=== PATIENT | female | born 1985 | race Caucasian/White ===

== ENCOUNTER 2020-12-30 04:58 | Inpatient (IN) | payer BC, SELFPAY ==
[2020-12-30] VITALS (98 sets, daily range): BP systolic 75–158; BP diastolic 35–141; PULSE 68–236; RESP 16–20; TEMP 36.2–36.8; O2SAT 97–100; BMI 43.1
--- NOTE | 2020-12-30 05:18 | LDADM ---
This patient, Renny Sanford, was admitted to Labor/Delivery/Recovery 105 on 12/30/20 at 04:58. Plans for labor, pain management and were discussed with patient. Patient/family oriented to hospital policies and general routines including ID bracelet, bed and alarms, visiting hours, pain management, procedures, bathroom and other care routines, personal items, smoking policy, room service/diet and guest tray routines, infant security routines, and visiting hours. Patient/Family are encouraged to report perceived risks to care and to ask questions if they do not understand what they are told or what they should do. See OBIX for further documentation.
[2020-12-30 05:41] LABS: Basophils Percent Auto 0.2 % (0.2-1.2); Eosinophils Percent Auto 0.3 % (0-4.4); Hematocrit 38.9 % (37.0-47.0); Hemoglobin 12.5 g/dL (12.0-15.0); Immature Granulocyte Absolute 0.11 K/mm3 (0.00-0.031); Immature Granulocyte Percent A 1.1 % (0-0.5); Lymphocytes Absolute Auto 1.44 K/mm3 (0.9-3.2); Lymphocytes Percent Auto 14.2 % (18.3-44.2); Mean Corpuscular HGB Conc 32.1 g/dl (32-36); Mean Corpuscular Hemoglobin 28.7 pg (26-34); Mean Corpuscular Volume 89.2 fl (80-100); Mean Platelet Volume 11.5 fl (7.4-10.4); Monocytes Absolute Auto 0.5 K/mm3 (0.1-0.6); Neutrophils Absolute Auto 8.1 K/mm3 (1.3-6.7); Neutrophils Percent Auto 79.2 % (45.5-73.1); Platelet Count Result 178 k/mm3 (150-375); Red Blood Count 4.36 M/mm3 (4.2-5.4); Red Cell Distribution Width 14.8 % (11.5-14.5); White Blood Count 10.2 K/mm3 (4.5-10.0)
--- NOTE | 2020-12-30 07:19 | PM.IMHP ---
H&P: HPI History of Present Illness Date/Time: 12/30/20 07:19 35-year-old 3 para 2 whose last menstrual period unknown but EDC is 12/29/2020 confirmed by 12 week ultrasound presents at 40 weeks for induction of labor. Her has been uncomplicated Chief Complaint: medical induction of labor at term Review of Systems Review of Systems: All systems reviewed & are unremarkable except as noted in HPI and below PMFSH Family History Family History Mother Diabetes mellitus Father Heart disease Social History Social History Substance use: never Gender identity (if verbalized by the patient): Female Spiritual care concerns: No Meds Home Medications and Allergies Home Medications Medication Instructions Recorded Confirmed Type PNV cmb#95-ferrous fumarate-FA 1 tablet PO DAILY 12/10/20 12/10/20 History [] omeprazole 40 mg DAILY 12/30/20 12/30/20 History Allergies Allergy/AdvReac Type Severity Reaction Status Date / Time No Known Allergies Allergy Verified 01/11/19 14:38 Vital Signs Vital Signs - 24 hr 12/30/20 05:15 12/30/20 05:17 12/30/20 05:31 Temperature Pulse Rate 84 81 81 Respiratory Rate Blood Pressure 128/106 H 121/80 123/68 12/30/20 05:46 12/30/20 06:01 12/30/20 06:16 Temperature Pulse Rate 75 75 79 Respiratory Rate Blood Pressure 108/66 109/72 122/77 12/30/20 06:20 12/30/20 06:31 Temperature 97.2 F L Pulse Rate 71 Respiratory Rate 18 Blood Pressure 110/75 Exam Const: General: no acute distress Eyes: General: appearance normal, both eyes and all related structures Neck: Neck: supple and no JVD Thyroid: thyroid normal Resp: Effort & Inspection: normal respiratory effort Auscultation: clear to auscultation bilaterally Cardio: Rate: regular rate Rhythm: regular rhythm GI: Inspection: non-distended GI Palp: Yes Soft to palpation, No Tenderness to palpation present (GI) and No Guarding due to palpation present (GI) Auscultation: normal bowel sounds : External Female Exam: normal external appearance Speculum Exam - Vagina: normal appearance of the vagina Speculum Exam - Cervix: normal appearance of the cervix ( cervix /2. FHTs reassuring) Skin: General skin exam: no rashes or lesions noted Extrem: General: normal to inspection and no edema Psych: Mental Status: mental status grossly normal Affect: normal affect H&P: Results Labs Labs: Short CBC 12/30/20 Range/Units 05:32 WBC 10.2 H (4.5-10.0) K/mm3 Hgb 12.5 (12.0-15.0) g/dL Hct 38.9 (37.0-47.0) % Plt Count 178 (150-375) k/mm3 Assessment and Plan Additional Plan impression: Term Plan: Medical rupture of labor. Spontaneous vaginal delivery expected
[2020-12-30 09:29] LABS: Rapid Plasma Reagin Non-Reactive (NonReactive)
--- NOTE | 2020-12-30 10:55 | WPDANESEPP ---
Anes - Eval Pre Procedure Procedure: labor epidural Date/Time: 12/30/20 10:55 Surgeon: nehal Preop Diagnosis: pain during labor Pre Op Diagnosis: Induction of Labor Patient Data Age: 35 Gender: F Height: 1.7 m Weight: 125 kg Last Vital Signs Temp 36.3 C L 12/30/20 08:05 Pulse 84 12/30/20 10:31 Resp 20 12/30/20 08:05 BP 105/68 12/30/20 10:31 Allergies Allergy/AdvReac Type Severity Reaction Status Date / Time No Known Allergies Allergy Verified 01/11/19 14:38 Home Medications Medication Instructions Recorded Confirmed Type PNV cmb#95-ferrous fumarate-FA 1 tablet PO DAILY 12/10/20 12/10/20 History [] omeprazole 40 mg DAILY 12/30/20 12/30/20 History Laboratory Tests 12/30/20 12/30/20 12/30/20 05:32 05:32 05:32 WBC 10.2 K/mm3 H K/mm3 (4.5-10.0) RBC 4.36 M/mm3 M/mm3 (4.2-5.4) Hgb 12.5 g/dL g/dL (12.0-15.0) Hct 38.9 % % (37.0-47.0) MCV 89.2 fl fl (80-100) MCH 28.7 pg pg (26-34) MCHC 32.1 g/dl g/dl (32-36) RDW 14.8 % H % (11.5-14.5) Plt Count 178 k/mm3 k/mm3 (150-375) MPV 11.5 fl H fl (7.4-10.4) Immature Gran % (Auto) 1.1 % H % (0-0.5) Neut % (Auto) 79.2 % H % (45.5-73.1) Lymph % (Auto) 14.2 % L % (18.3-44.2) [place] % (Auto) 5.0 % % (2.6-8.5) Eos % (Auto) 0.3 % % (0-4.4) Baso % (Auto) 0.2 % % (0.2-1.2) Lymph # (Auto) 1.44 K/mm3 K/mm3 (0.9-3.2) [place] # (Auto) 0.5 K/mm3 K/mm3 (0.1-0.6) Eos # (Auto) 0.0 K/mm3 K/mm3 (0-0.3) Baso # (Auto) 0.0 K/mm3 K/mm3 (0.0-0.1) Abs Immat Gran (auto) 0.11 K/mm3 H K/mm3 (0.00-0.031) Absolute Neuts (auto) 8.1 K/mm3 H K/mm3 (1.3-6.7) Absolute Nucleated RBC 0.0 K/mm3 K/mm3 (0.0-0.012) Nucleated RBC % 0.0 % % (0.0-0.2) RPR Non-reactive (NonReactive) Blood Type AB Positive Antibody Screen Negative Patient hx anesthesia problems: none Family hx anesthesia problems: none PMFSH Past Medical History Medical History (Updated 12/30/20 @ 10:56 by Pilar Maria CRNA) GERD (gastroesophageal reflux disease) Morbid obesity with BMI of 40.0-44.9, adult Family History Family History Mother Diabetes mellitus Father Heart disease Social History Social History Substance use: never Gender identity (if verbalized by the patient): Female Spiritual care concerns: No Exam Day of Procedure 12/30/20 10:55
[2020-12-30] MEDS: fentaNYL CITRATE INJ (*CRX) 100 MCG/2 ML VIAL 50 MCG IV PUSH ×2 (15:11→19:13)
--- NOTE | 2020-12-30 15:53 | PM.OBPNLAB ---
Pain Control Date/time seen: 12/30/20 15:53 cx 4 fhts reassuring
[2020-12-30] MEDS: OXYTOCIN 30 UNITS/NS 500 ML 30 UNITS/500 ML BAG IV CONT (16:45)
[2020-12-30] MEDS: LACTATED RINGERS 1,000 ML 125 ML IV CONT (16:45)
--- NOTE | 2020-12-30 20:50 | PM.OBPRVD ---
OB - Delivery Note Procedure Procedure: Patient pushed for a spontaneous vaginal delivery. A nuchal cord x2 was noted and delivered through. The fetus was delivered atraumatically and placed on the maternal abdomen. The cord was clamped and cut after 1 minute of life. The cord was double clamped and cut and a segment of cord was collected for cord gases. Cord blood was collected for blood type and Coomb's testing. The placenta delivered spontaneously and was noted to be intact. The perineum was inspected and there were no lacerations noted. The uterus was firm and good hemostasis was noted. The patient and fetus were stable in the delivery room. Intrapartal events: None Induction method: none Delivery augmentation: rupture of membranes Delivery monitor: external FHT Route of delivery: Episiotomy description: None Laceration Description: None Specimen: No Quantitative Blood Loss (ml): 200 Anesthesia type: Epidural Disposition: floor () Complications: No immediate complications [place] Baby Date of : 12/30/20 Time of : 20:43 Weeks of gestation at delivery: 40 gender: Female presentation: vertex position: Right Occiput Anterior Placenta delivery description: Spontaneous cord vessel description: Nuchal Cord (x2) score one minute: 8 score five minutes: 9
[2020-12-30] MEDS: OXYTOCIN 30 UNITS/NS 500 ML 30 UNITS/500 ML BAG 125 UNITS IV CONT (21:20)
[2020-12-30] MEDS: ACETAMINOPHEN 325 MG TABLET 650 MG PO (21:56)
--- NOTE | 2020-12-30 23:16 | OBPPTRN ---
Patient transferred to post room #286 via wheelchair. Support person present. Oriented to unit, room, information board, rooming in, admission packet and security measures. Patient verbalizes understanding.
[2020-12-31 04:00] VITALS: BP 121/74; PULSE 87; RESP 16; TEMP 36.8; O2SAT 98
[2020-12-31] MEDS: IBUPROFEN 600 MG TABLET PO ×3 (04:24→17:10)
[2020-12-31] MEDS: DOCUSATE SODIUM 100 MG CAPSULE PO (04:25)
[2020-12-31 05:44] LABS: Hematocrit 35.3 % (37.0-47.0); Hemoglobin 11.3 g/dL (12.0-15.0)
--- NOTE | 2020-12-31 06:55 | PM.OBPNVD ---
OB - PN: Subj Subjective Date/time seen: 12/31/20 06:55 Patient comments: no complaints and pain well controlled baby status: doing well and nursing well OB - PN: Obj Data Labs CBC & Chem 7: 12/31/20 04:18 Labs: Laboratory Results - last 24 hr 12/30/20 12/30/20 12/31/20 05:32 05:32 04:18 Hgb 11.3 L Hct 35.3 L RPR Non-reactive Blood Type AB Positive Antibody Screen Negative OB - PN A/P Plan day: 1 Plan: routine care Time Spent With Patient Time: Total time spent is greater than 50% in coordination of care (as documented) at patient's floor/unit and/or counseling patient: Time with patient: less than 15 minutes Review of Systems Review of Systems: All systems reviewed & are unremarkable except as noted in HPI and below Exam Const: General: no acute distress Eyes: General: appearance normal, both eyes and all related structures Neck: Neck: supple and no JVD Thyroid: thyroid normal Resp: Effort & Inspection: normal respiratory effort Auscultation: clear to auscultation bilaterally Cardio: Rate: regular rate Rhythm: regular rhythm GI: Inspection: non-distended GI Palp: Yes Soft to palpation, No Tenderness to palpation present (GI) and No Guarding due to palpation present (GI) Auscultation: normal bowel sounds : General: Yes bladder normal to palpation External Female Exam: normal external appearance Speculum Exam - Vagina: normal vaginal discharge and No vaginal bleeding Speculum Exam - Cervix: nontender Bimanual exam- vagina & uterus: bladder normal to palpation and No Cervical tenderness present OB/external & speculum: No vaginal bleeding Skin: General skin exam: no rashes or lesions noted Extrem: General: normal to inspection and no edema Psych: Mental Status: mental status grossly normal Affect: normal affect
[2020-12-31 08:40] VITALS: BP 100/58; PULSE 72; PULSE 93; RESP 16; TEMP 36.9; O2SAT 97; O2SAT 99
--- NOTE | 2020-12-31 10:29 | WPDANLDPN2 ---
Anes-Prog Note L&D Date/Time: 12/31/20 10:29 Comfortable throughout: labor and delivery Neuraxial method: epidural Epidural/Spinal procedure site: clean & non-tender Neuro status: Neuro function grossly intact. Cardiovascular status: normal Respiratory status: normal Airway patency: baseline Mental status: baseline Post-Op hydration status: normal Vital Signs: Last Vital Signs Temp 98.4 F 12/31/20 08:40 Pulse 93 12/31/20 08:40 Resp 16 12/31/20 08:40 BP 100/58 L 12/31/20 08:40 Pulse Ox 97 12/31/20 08:40 Pain score (VAS): 0/10 I/O: Intake & Output 12/30/20 12/31/20 12/31/20 23:59 07:59 15:59 Intake Total 500 Output Total 647 Balance -647 500 Post-procedural complaints: none Patient feedback: Patient satisfied with anesthetic care.
[2020-12-31] MEDS: MULTIVIT/MIN/PREN/FOL AC/IRON TABLET 1 TAB PO (10:42)
[2020-12-31 12:10] VITALS: BP 125/82; PULSE 72; RESP 16; TEMP 37; O2SAT 99
--- NOTE | 2020-12-31 14:30 | PC.NURSE ---
Attempt X2 to consult mother was sleeping. Mother verbalizes she is able to independently latch with appropriate positioning/alignment. She denies any nipple discomfort, is feeding as required and waking to feed if needed. is currently meeting feeding requirements outcomes for weight, output, and jaundice. Mother states she does not require feeding assist/education at this time. Reviewed resources in the Mom/Baby guide. Instructed mother to call out for future feedings if assistance is needed.
[2021-01-01] MEDS: IBUPROFEN 600 MG TABLET PO (05:30)
[2021-01-01 09:30] VITALS: BP 117/79; PULSE 71; RESP 18; TEMP 36.6; O2SAT 99
[2021-01-01] MEDS: MULTIVIT/MIN/PREN/FOL AC/IRON TABLET 1 TAB PO (09:51)
[2021-01-01] MEDS: DOCUSATE SODIUM 100 MG CAPSULE PO (09:51)
--- NOTE | 2021-01-01 10:19 | PM.OBPNVD ---
OB - PN: Subj Subjective Date/time seen: 01/01/21 10:19 Narrative: Pain OK. Would like to go home. OB - PN: Obj Data Labs CBC & Chem 7: 12/31/20 04:18 OB - PN A/P Plan Comments: A: PPD#2, doing well. P: Home to f/u 6 weeks. Exam Psych: Other: AVSS ABD soft, nontender, fundus firm EXT nontender
[2021-01-01] MEDS: MEASLES,MUMPS,RUBELLA VACCINE 0.5 ML VIAL SUB-Q (10:24)
--- NOTE | 2021-01-01 15:17 | PC.NURSE ---
1000 Patient was given the opportunity to view the discharge video Mother & Baby Care, The First Two Weeks and to ask questions. Patient declined viewing the video and has been given the mother/baby guide for home reference.
[2021-01-03 09:14] VITALS: BP 140/82; PULSE 75; RESP 20; O2SAT 100
--- NOTE | 2021-01-11 12:59 | PM.OBDSVD ---
DS: Admitting Diagnosis Admitting Diagnosis IUP at 40 weeks DS: Discharge Diagnosis Discharge Diagnosis (1) (normal spontaneous vaginal delivery): Code(s): O80 - Encounter for full-term uncomplicated delivery Status: Acute OB - DS: Summary OB Procedures : None OB Procedures Intrapartum: Spontaneous Vag Delivery OB Procedures: : None Discharge Plan Discharge Attending physician on discharge: Yair Peterson Consulting providers: Jeffery Dinh Discharging Clinician: Thad Arambula Patient Disposition: Home, Self-Care Activity: pelvic rest Diet: regular Discharge Instructions: Education: Mom and Baby Guide Given to: Mother Follow-Up: Call your delivering provider's office for an appointment to be seen in: 6 Weeks Mom and baby should come to the [facility] for the follow-up appointment. Appointment Date/Time: January 03, 2021 at 9:00 am What to expect at your follow-up visit: Call [phone] if you are unable to keep your appointment time. BREAST CARE: * Wear a snug supportive bra. * For engorgement discomfort: Breast Feeding: * Apply warm moist washcloths * Express milk as needed to relieve engorgement * Wear loose clothing Bottle Feeding: * May apply ice packs * For sore nipples: * Identify correct latch-on * Apply warm moist washcloths before and after nursing * Air dry nipples after nursing * May apply Lansinoh cream to nipples ABDOMINAL INCISION: (if applicable) * Allow incision to air dry * Do NOT use lotions for powders on your incision * When showering, allow soap and water to run over the incision, but do not wash incision EPISIOTOMY/PERINEAL CARE: * Until bleeding stops, use your albino bottle after urinating * Change your pad frequently throughout the day * You may take sitz baths several times a day (fill your bathtub with warm water and soak for 20 minutes.) Do NOT bathe in the water * No tub baths until seen by your physician - You may shower ACTIVITY: * Rest as much as possible. * Do not exercise or lift anything heavier than your baby (such as laundry or other children.) * Avoid stairs or driving as much as possible. * Do not put anything into the vagina. No douching, tampons, or sexual activity until seen by physician. NOTIFY PHYSICIAN IF YOU HAVE ANY QUESTIONS OR IF ANY OF THE FOLLOWING SYMPTOMS OCCUR: * If your episiotomy or incision becomes red, swollen, or more painful than what you have experienced in the hospital. * If your vaginal bleeding becomes foul smelling. * If your vaginal bleeding becomes more heavy than a period or if your bleeding changes from pink to bright red. However, you may pass an occasional walnut-sized clot once or twice for the first week . * If you experience a sharp, shooting pain in you calves. * If you discover a hard, reddened area on your breast or if you experience flu-like symptoms. DIET: * Eat regular, well-balanced meals. * Drink plenty of fluids daily. If , drink to thirst. Per Dr. Arambula, Call or return if temperature above 100.4? F, increased abdominal pain, increased vaginal bleeding or any new problems. Follow-up/Referrals: Yair Petersno MD [Physician] - 6 Weeks Discharge Medications: New ibuprofen 600 mg tablet 600 mg PO Q6H PRN (Reason: cramps) Qty: 30 RF: 0 Continued PNV cmb#95-ferrous fumarate-FA [] 28 mg iron- 800 mcg Tablet 1 tablet PO DAILY RF: 0 Discontinued omeprazole 40 mg capsule,delayed release(DR/EC) 40 mg DAILY RF: 0 Date of admission: 12/30/20 04:58 Primary Care Provider: Daniel Watts Admitting Provider: Yair Peterson Attending physician on admission: Thad Arambula Condition: Stable
== END 2021-01-01 14:08 | disposition home or self-care (01) | DRG 807 ==
LOC: ANHLDR 05:02 → ANHOB2 01-01 10:20 → ANHLDR 01-03 12:46 → ANHOB2 01-03 12:46
PROVIDERS: Student in an Organized Health Care Education/Training Program; Admitting Provider Obstetrics & Gynecology; PCP Family Medicine Adolescent Medicine; Visit Provider Obstetrics & Gynecology
DX: O69.81X0 Labor and delivery complicated by cord around neck, without compression, not applicable or unspecified (principal); Z37.0 Single live birth; Z3A.40 40 weeks gestation of pregnancy
CPT/HCPCS: 36415; 85014; 85018; 85025; 86592; 86850; 86900; 86901; 90710; A9270; J2590; J3010; J7120

== ENCOUNTER → 2021-05-24 01:44 | Outpatient (CLI) | payer OTHER, SELFPAY ==
[2021-05-25 13:33] LABS: SARS-CoV-2 RNA PCR Positive
== END ==
PROVIDERS: PCP Family Medicine Adolescent Medicine; Visit Provider Family Medicine Adolescent Medicine
DX: U07.1 COVID-19 (principal)
CPT/HCPCS: C9803; U0003; U0005

== ENCOUNTER 2024-03-12 18:12 | Emergency (ER) | payer BC, SELFPAY ==
[2024-03-12] VITALS (8 sets, daily range): BP systolic 140–158; BP diastolic 82–103; PULSE 92–100; RESP 16–17; TEMP 36.4; O2SAT 97–100
--- NOTE | ~2024-03-12 | CT_ITS ---
EXAMINATION: CT abdomen pelvis w con DATE: 03/12/2024 19:34 INDICATION: Right lower quadrant abdominal pain. TECHNIQUE: Computed tomography (CT) of the abdomen and pelvis was performed with 100 mL Omnipaque 350 intravenous contrast. Automated exposure control and iterative reconstruction technique were employe d. The dose-length product was 1459.20 mGy-cm. COMPARISON: None. FINDINGS: The visualized portions of the lung bases demonstrate mild atelectasis. No pleural effusion . The heart size is normal. No pericardial effusion. There is diffuse hepatic steatosis. The gallblad douglas is contracted. The spleen, pancreas, adrenal glands, and kidneys are normal. There is an intraute rine device in the fundus of the uterus. There is a 4.0 cm cyst in the right ovary. There are no dila karol loops of bowel. The appendix is normal. There are no pathologically enlarged lymph nodes. There i s no free intraperitoneal fluid. There is mild thoracic and lumbar spondylosis. IMPRESSION: 1. 4.0 cm cyst in the right ovary, likely a follicular cyst. 2. Intrauterine device in the fundus of the uterus, likely in the myometrium. Reviewed, dictated and finalized at location A.
--- NOTE | ~2024-03-12 | US_ITS ---
EXAMINATION: US transvaginal DATE: 03/12/2024 22:23 INDICATION: Right lower quadrant abdominal pain. TECHNIQUE: Multiple transvaginal sonographic images of the pelvis were obtained. COMPARISON: CT abdomen and pelvis 03/12/2024 FINDINGS: The uterus measures 8.3 x 3.6 x 5.5 cm. There is no free fluid in the pelvis. There is a [facility] [address] in the cervix. The endometrial complex measures 3 mm in thickness. There is an intrauterine device in expected position. The right ovary measures 5.0 x 3.0 x 3.4 cm. There is a 4.5 cm cyst in right o vary. The left ovary measures 3.4 x 1.9 x 1.8 cm. There is normal vascular flow in the ovaries. IMPRESSION: 1. 4.5 cm cyst in right ovary, likely a follicular cyst. 2. Intrauterine device in expected position. Reviewed, dictated and finalized at location A.
--- NOTE | 2024-03-12 18:29 | ED.ABDPAIN ---
HPI - Abdominal Pain General Chief Complaint: Abdominal Pain <Braxton Richey APRN - Last Filed: 03/12/24 18:29> Stated Complaint: ABD PAIN <Braxton Richey APRN - Last Filed: 03/12/24 18:29> Time Seen by Provider: 03/12/24 18:53 <Braxton Richey APRN - Last Filed: 03/12/24 18:29> 38-year-old female presents with right lower quadrant pain that started 10:00 a.m. this morning. Patient denies urinary symptoms but is having slight nausea. Patient has no history of any GI issues or surgeries. Patient is concerned for appendix. General appearance: Well-developed, well-nourished Skin: Normal color Head: Normocephalic, nontraumatic Eyes: Clear conjunctiva ENT: Oropharynx normal, ears normal, nose normal Neck: Supple, nontender Chest and respiratory: Airway patent, no respiratory distress, no accessory muscle use Heart: Regular rate/rhythm Abdomen: Soft, RLQ tenderness, no organomegaly, quiet bowel sounds Vascular: Normal peripheral pulses, normal capillary refill. Musculoskeletal: Normal range of motion, nontender back Neurologic: Alert and oriented ?3, CHECK EXAMINER is normal as tested, no gross motor deficit <Braxton Richey APRN - Last Filed: 03/12/24 18:29> Related Data Home Medications: Home Medications Medication Instructions Recorded Confirmed vit no.95-ferrous 1 tablet PO DAILY 12/10/20 07 fumarate 28 mg-folic acid 800 mcg tablet () <Braxton Richey APRN - Last Filed: 03/12/24 18:29> Allergies/Adverse Reactions: Allergies Allergy/AdvReac Type Severity Reaction Status Date / Time No Known Allergies Allergy Verified 03/12/24 18:14 <Braxton Richey APRN - Last Filed: 03/12/24 18:29> Review of Systems Review of Systems: All systems reviewed & are unremarkable except as noted in HPI and below <Kandis Gonzalez APRN - Last Filed: 03/12/24 22:38> PMFSH Past Medical History Medical History: Medical History GERD (gastroesophageal reflux disease) Morbid obesity with BMI of 40.0-44.9, adult <Braxton LUDWIN Richey - Last Filed: 03/12/24 18:29> Family History Family History: Family History Mother Diabetes mellitus Father Heart disease <Braxton Richey APRN - Last Filed: 03/12/24 18:29> Social History Social History: Social History Smoking status: Never smoker Substance use: never Gender identity (if verbalized by the patient): Female Spiritual care concerns: No <Braxton Richey APRN - Last Filed: 03/12/24 18:29> Exam Narrative: GENERAL: Well appearing, well-nourished, non-toxic, in no acute distress. HEAD: Normocephalic, atraumatic. NECK: Supple. No adenopathy, no masses. RESPIRATORY: Airway patent, respirations nonlabored. Clear to auscultation bilaterally, no rales, rhonchi, wheezing. CARDIOVASCULAR: Regular rate and rhythm without murmurs, rubs, or gallops. Peripheral pulses 2+ and equal bilaterally. ABDOMINAL: Soft, tender in RLQ with palpation, nondistended, no hepatosplenomegaly. Normoactive BS. MUSCULOSKELETAL: Moves all extremities. Strength/ROM intact without gross deformities. SKIN: Warm, dry, normal color. No rashes. NEURO: A&O X3. Speech clear. Cranial nerves II-XII grossly intact. Steady gait. No ataxic movements. PSYCHIATRIC: Appropriate mood and affect. Normal interaction. <Kandis Gonzalez APRN - Last Filed: 03/12/24 22:38> Course Vital Signs Vital signs: Vital Signs Temperature 36.4 C 03/12/24 18:21 Pulse Rate 100 03/12/24 18:2
[2024-03-12 18:50] LABS: Basophils Percent Auto 0.3 % (0.2-1.2); Eosinophils Percent Auto 0.3 % (0-4.4); Hematocrit 40.5 % (37.0-47.0); Hemoglobin 13.8 g/dL (12.0-15.0); Immature Granulocyte Absolute 0.04 K/mm3 (0.00-0.031); Immature Granulocyte Percent A 0.3 % (0-0.5); Lymphocytes Absolute Auto 1.87 K/mm3 (0.9-3.2); Mean Corpuscular HGB Conc 34.1 g/dl (32-36); Mean Corpuscular Hemoglobin 30.4 pg (26-34); Mean Corpuscular Volume 89.2 fl (80-100); Mean Platelet Volume 10.4 fl (7.4-10.4); Monocytes Absolute Auto 0.6 K/mm3 (0.1-0.6); Monocytes Percent Auto 4.8 % (2.6-8.5); Neutrophils Absolute Auto 9.9 K/mm3 (1.3-6.7); Neutrophils Percent Auto 79.3 % (45.5-73.1); Platelet Count Result 232 k/mm3 (150-375); Red Blood Count 4.54 M/mm3 (4.2-5.4); Red Cell Distribution Width 13.2 % (11.5-14.5); White Blood Count 12.5 K/mm3 (4.5-10.0)
[2024-03-12 18:51] LABS: Add Urine Microscopic? NO; Appearance Urine Clear (Clear); Bilirubin Urine Negative (Negative); Blood Urine Negative (Negative); Color Urine Yellow (Yellow); Glucose Urine UA Negative (Negative); Ketones Urine Negative (Negative); Leukocyte Esterase Ur Negative LEU/UL (Negative); Nitrate Urine Negative (Negative); Protein Urine Negative (Negative); Specific Grav Ur 1.009 (1.001-1.035); Urobilinogen Urine 0.2 mg/dL (<2.0); pH Urine 5.5 (5.0-9.0)
[2024-03-12 18:58] LABS: Pregnancy On Board Control Positive; Urine Pregnancy Test Negative
[2024-03-12 19:01] LABS: Alanine Aminotransferase 30 U/L (6-35); Albumin Level 4.6 g/dL (3.5-5.1); Alkaline Phosphatase 69 U/L (38-126); Anion Gap 9 mmol/L (4-12); Aspartate Amino Transferase 31 U/L (14-36); Bilirubin,Total 0.6 mg/dL (0.2-1.3); Blood Urea Nitrogen 14 mg/dL (7-17); Calcium 9.7 mg/dL (8.4-10.2); Carbon Dioxide 26 mmol/L (22-30); Chloride 104 mmol/L (98-107); Estimated CRCL calculation 102 ml/min; Estimated Glomerular Filt Rate > 60; Glucose 98 mg/dL (65-110); Lipase 33 U/L (23-300); Potassium 3.8 mmol/L (3.4-5.0); Sodium 139 mmol/L (137-145)
[2024-03-12] MEDS: SODIUM CHLORIDE 0.9% IV 1,000 ML 999 ML IV CONT (19:22)
[2024-03-12 20:54] LABS: Troponin I < 0.012 ng/mL (0.000-0.034)
== END 2024-03-12 22:59 | disposition home or self-care (01) ==
PROVIDERS: Nurse Practitioner Family; Emergency Provider Registered Nurse; PCP Family Medicine Adolescent Medicine
DX: N83.201 Unspecified ovarian cyst, right side (principal); K21.9 Gastro-esophageal reflux disease without esophagitis; E03.9 Hypothyroidism, unspecified; E66.01 Morbid (severe) obesity due to excess calories; Z68.41 Body mass index [BMI] 40.0-44.9, adult; Z97.5 Presence of (intrauterine) contraceptive device
CPT/HCPCS: 36415; 74177; 76830; 80053; 81003; 81025; 83690; 84484; 85025; 96360; 99284; J7030; Q9967